=== PATIENT | female | born 2005 | race Caucasian/White ===

== ENCOUNTER 2024-07-18 17:45 | Inpatient (IN) | payer OTHER ==
--- NOTE | 2024-07-18 18:07 | ED ---
General Adult HPI - General Chief complaint: Seizure Stated complaint: seizure Time Seen by Provider: 07/18/24 17:54 Source: patient, EMS Mode of arrival: EMS Limitations: altered mental status - History of Present Illness Initial comments: Dictation was produced using [employer] dictation software. please excuse any grammatical, word or spelling errors. Chief Complaint: 19-year-old female with seizure History of Present Illness: Patient 19-year-old female she has a history of seizure disorder. Patient states she has total abdominal pain. She also c omplains of a mild headache. Mother at the bedside states that patient has had seizures in the past that she says was related to low sodium. Patient has been having bouts of vomiting. She was seen in the ER recently for similar issue. She has not followed up with neurology outpatient yet. Had multiple bouts of emesis that is nonbilious and nonbloody. She complains of total abdominal pain The ROS documented in this emergency department record has been reviewed and confirmed by me. Those systems with pertinent positive or negative responses have been documented in the HPI. All other systems are other negative and/or noncontributory. - Related Data Allergies Allergy/AdvReac Type Severity Reaction Status Date / Time No Known Allergies Allergy Verified 07/18/24 18:01 Review of Systems ROS Statement: Those systems with pertinent positive or pertinent negative responses have been documented in the HPI. ROS Other: All systems not noted in ROS Statement are negative. Past Medical History Past Medical History: Seizure Disorder Additional Past Medical History / Comment(s): POTS History of Any Multi-Drug Resistant Organisms: None Reported Past Surgical History: No Surgical Hx Reported Smoking Status: Vaper Past Alcohol Use History: Occasional Past Drug Use History: Marijuana General Exam - General Exam Comments Initial Comments: PHYSICAL EXAM: General Impression: Alert and oriented x3, not in acute distress HEENT: Normocephalic atraumatic, extra-ocular movements intact, pupils equal and reactive to light bilaterally, mucous membranes moist. Cardiovascular: Heart regular rate and rhythm Chest: Able to complete full sentences, no retractions, no tachypnea Abdomen: abdomen soft, non-tender, non-distended, no organomegaly Musculoskeletal: Pulses present and equal in all extremities, no peripheral edema Motor: no focal deficits noted Neurological: CN II-XII grossly intact, no focal motor or sensory deficits noted Skin: Intact with no visualized rashes Psych: Normal affect and mood Limitations: altered mental status Course Vital Signs 07/18/24 07/18/24 07/18/24 17:50 18:10 19:50 Temperature 98.7 F 98.7 F Pulse Rate 90 85 78 Respiratory 18 17 16 Rate Blood Pressure 105/62 110/55 117/80 O2 Sat by Pulse 98 98 98 Oximetry EKG Findings - EKG Comments: EKG Findings:: My EKG interpretation: Ventricular rate 84, sinus rhythm,. 137, QRS 106, QTc 441. No [place] prolongation, no QTC prolongation, no ST or T-wave changes notedOverall, this EKG is unremarkable Medical Decision Making - Medical Decision Making Was pt. sent in by a medical professional or institution (, PA, CUTTING TABLE OPERATOR, urgent care, hospital, or retirement...) When possible be specific @ -No Did you speak to anyone other than the patient for history (EMS, parent, family, police, friend...)? What history was obtained from this source @ -No Did you review nursing and triage notes (agree or disagree)? Why? @ -I reviewed and agree with nursing and triage notes Were old charts reviewed (outside hosp., previous admission, EMS record, old EKG, old radiological studies, urgent care reports/EKG's, retirement records)? Report findings @ -No old charts were reviewed Differential Diagnosis (chest pain, altered mental status, abdominal pain women, abdominal pain men, vaginal bleeding, musculoskeletal, weakness, fever, dyspnea, syncope, headache, dizziness, GI bleed, back pain, seizure, CVA, palpatations, mental health)? @ -Differential Seizure: Recurrent seizure disorder, febrile seizure, alcohol withdrawal, stimulants, meningitis, encephalitis, intercranial hemorrhage, intracranial tumor, stroke, eclampsia, thyrotoxicosis, hypocalcemia, hyponatremia, hypernatremia, hypomagnesemia, psychogenic, this is not meant to be an all-inclusive list. EKG interpreted by me (3pts min.). @ -See above X-rays interpreted by me (1pt min.). @ -Pending CT interpreted by me (1pt min.). @ -Pending U/S interpreted by me (1pt. min.). @ -None done What testing was considered but not performed or refused? (CT, X-rays, U/S, labs)? Why? @ -None What meds were considered but not given or refused? Why? @ -None Was smoking cessation discussed for >3mins.? @ -No Were there social determinants of health that impacted care today? How? (Homelessness, low income, unemployed, alcoholism, drug addiction, transportation, low edu. Level, literacy, decrease access to med. care, correction, rehab)? @ -No Was there de-escalation of care discussed even if they declined (Discuss DNR or withdrawal of care, Hospice)? DNR status @ -No What co-morbidities impacted this encounter? (DM, HTN, Smoking, COPD, CAD, Cancer, CVA, ARF, Chemo, Hep., AIDS, mental health diagnosis, sleep apnea, morbid obesity)? @ -None Was patient admitted / discharged? Hospital course, mention meds given and route, prescriptions, significant lab abnormalities, going to OR and other pertinent info. @ -19-year-old female presents to the emergency department after having had a tonic-clonic seizure. Seizure was witnessed by parents. Vital signs upon arrival are within acceptable limits. She did complain of some associated abdo ludwin pain. Her abdomen soft. Laboratory evaluation obtained. Labs shows Acidosis with a lactic acid of 8.[address] brain and abdominal x-ray obtained. CT brain pending. Abdominal x-ray is nonacute. Patient has been having significant difficulty following up with outpatient neurology. She reportedly has an appointment however they are still 2 months out. She has been having increased frequency of her seizures. Patient be admitted with consultation to neurology. Case discussed with hospitalist for admission. Did you discuss the management of the patient with other professionals (professionals i.e. , PA, CUTTING TABLE OPERATOR, lab, RT, psych nurse, social services specialist, starch and prosize mixer, teacher, space officer, rehabilitation case coordinator)? Give summary @ -No Was critical care preformed (if so, how long)? @ -No Undiagnosed new problem with uncertain prognosis? @ -No Drug Therapy requiring intensive monitoring for toxicity (Heparin, Nitro, Insulin, Cardizem)? @ -No Were any procedures done? @ -No Diagnosis/symptom? Acute, or Chronic, or Acute on Chronic? Uncomplicated (without systemic symptoms) or Complicated (systemic symptoms)? @ -Seizure Side effects of treatment? @ -No Exacerbation, Progression, or Severe Exacerbation? @ -No Poses a threat to life or bodily function? How? (Chest pain, [place], ME, pneumonia, PE, COPD, DKA, ARF, appy, cholecystitis, CVA, Diverticulitis, Homicidal, Suicidal, threat to staff... and all critical care pts) @ -yes - Lab Data Result diagrams: 07/18/24 18:25 07/18/24 18:25 Lab Results 07/18/24 07/18/24 07/18/24 Range/Units 18:25 18:25 18:25 WBC 13.3 H (3.8-10.6) k/uL RBC 4.60 (3.80-5.40) m/uL Hgb 14.0 (11.4-16.0) gm/dL Hct 42.5 (34.0-46.0) % MCV 92.5 (80.0-100.0) fL MCH 30.5 (25.0-35.0) pg MCHC 33.0 (31.0-37.0) g/dL RDW 12.6 (11.5-15.5) % Plt Count 208 (150-450) k/uL MPV 8.1 Neutrophils % 92 % Lymphocytes % 5 % Monocytes % 3 % Eosinophils % 0 % Basophils % 0 % Neutrophils # 12.2 H (1.3-7.7) k/uL Lymphocytes # 0.6 L (1.0-4.8) k/uL Monocytes # 0.4 (0-1.0) k/uL Eosinophils # 0.0 (0-0.7) k/uL Basophils # 0.0 (0-0.2) k/uL PT 12.9 H (10.0-12.5) sec INR 1.2 H (<1.2) APTT 21.9 L (22.0-30.0) sec Sodium 134 L (137-145) mmol/L Potassium 3.8 (3.5-5.1) mmol/L Chloride 105 (98-107) mmol/L Carbon Dioxide 15 L (22-30) mmol/L Anion Gap 14 mmol/L BUN 8 (7-17) mg/dL Creatinine 0.55 (0.52-1.04) mg/dL Est GFR (CKD-EPI)AfAm >90 (>60 ml/min/1.73 sqM) Est GFR (CKD-EPI)NonAf >90 (>60 ml/min/1.73 sqM) Glucose 154 H (74-99) mg/dL Plasma Lactic Acid Narinder (0.7-2.0) mmol/L Calcium 8.8 (8.4-10.2) mg/dL Magnesium 2.4 H (1.6-2.3) mg/dL Total Bilirubin 2.2 H (0.2-1.3) mg/dL AST 24 (14-36) U/L ALT 23 (4-34) U/L Alkaline Phosphatase 50 (38-126) U/L Total Protein 7.3 (6.3-8.2) g/dL Albumin 4.8 (3.5-5.0) g/dL HCG, Quant <2.4 mIU/mL 07/18/24 Range/Units 18:25 WBC (3.8-10.6) k/uL RBC (3.80-5.40) m/uL Hgb (11.4-16.0) gm/dL Hct (34.0-46.0) % MCV (80.0-100.0) fL MCH (25.0-35.0) pg MCHC (31.0-37.0) g/dL RDW (11.5-15.5) % Plt Count (150-450) k/uL MPV Neutrophils % % Lymphocytes % % Monocytes % % Eosinophils % % Basophils % % Neutrophils # (1.3-7.7) k/uL Lymphocytes # (1.0-4.8) k/uL Monocytes # (0-1.0) k/uL Eosinophils # (0-0.7) k/uL Basophils # (0-0.2) k/uL PT (10.0-12.5) sec INR (<1.2) APTT (22.0-30.0) sec Sodium (137-145) mmol/L Potassium (3.5-5.1) mmol/L Chloride (98-107) mmol/L Carbon Dioxide (22-30) mmol/L Anion Gap mmol/L BUN (7-17) mg/dL Creatinine (0.52-1.04) mg/dL Est GFR (CKD-EPI)AfAm (>60 ml/min/1.73 sqM) Est GFR (CKD-EPI)NonAf (>60 ml/min/1.73 sqM) Glucose (74-99) mg/dL Plasma Lactic Acid Narinder 8.0 H* (0.7-2.0) mmol/L Calcium (8.4-10.2) mg/dL Magnesium (1.6-2.3) mg/dL Total Bilirubin (0.2-1.3) mg/dL AST (14-36) U/L ALT (4-34) U/L Alkaline Phosphatase (38-126) U/L Total Protein (6.3-8.2) g/dL Albumin (3.5-5.0) g/dL HCG, Quant mIU/mL Disposition Clinical Impression: Seizure Disposition: ADMITTED IP TO THIS HOSP Condition: Fair Referrals: None,Stated [Primary Care Provider] - 1-2 days Decision Time: 20:42
[2024-07-18 18:44] LABS: Basophils % (A) 0 %; Eosinophils % (A) 0 %; HCT 42.5 % (34.0-46.0); Lymphocytes # (A) 0.6 k/uL (1.0-4.8); Lymphocytes % (A) 5 %; MCH 30.5 pg (25.0-35.0); MCV 92.5 fL (80.0-100.0); Mean Platelet Volume 8.1; Monocytes # (A) 0.4 k/uL (0-1.0); Monocytes % (A) 3 %; Neutrophils # (A) 12.2 k/uL (1.3-7.7); Neutrophils % (A) 92 %; Platelet Count 208 k/uL (150-450); RDW 12.6 % (11.5-15.5); WBC 13.3 k/uL (3.8-10.6)
[2024-07-18 19:00] LABS: AST 24 U/L (14-36); African American GFR (CKD) >90 (>60 ml/min/1.73 sqM); Albumin 4.8 g/dL (3.5-5.0); Alkaline Phosphatase 50 U/L (38-126); Anion Gap 14 mmol/L; Blood Urea Nitrogen 8 mg/dL (7-17); Calcium 8.8 mg/dL (8.4-10.2); Carbon Dioxide 15 mmol/L (22-30); Chloride 105 mmol/L (98-107); Glucose 154 mg/dL (74-99); INR 1.2 (<1.2); Magnesium 2.4 mg/dL (1.6-2.3); Non-African American GFR(CKD) >90 (>60 ml/min/1.73 sqM); Partial Thromboplastin Time 21.9 sec (22.0-30.0); Potassium 3.8 mmol/L (3.5-5.1); Prothrombin Time 12.9 sec (10.0-12.5); Sodium 134 mmol/L (137-145); Total Bilirubin 2.2 mg/dL (0.2-1.3); Total Protein 7.3 g/dL (6.3-8.2)
[2024-07-18 19:07] LABS: ALT 23 U/L (4-34)
[2024-07-18 19:14] LABS: HCG,Quantitative Serum <2.4 mIU/mL
[2024-07-18] MEDS: levETIRAcetam IV 500 MG/5 ML VIAL IVP STA (19:52)
--- NOTE | 2024-07-18 20:24 | XR ---
EXAMINATION TYPE: XR abdomen 1V DATE OF EXAM: 07/18/2024 8:16 PM COMPARISON: None CLINICAL INDICATION: Female, 19 years old with history of pain, head contusion; [facility] TECHNIQUE: One radiographic view of the abdomen was obtained. FINDINGS: The bowel gas pattern is nonspecific without dilated loops of small or large bowel. . Fecal material and gas are demonstrated throughout the colon and rectum. There is no evidence for organomegaly or pneumoperitoneum. The osseous structures are intact. No ab normal calcifications are present. IMPRESSION: Nonspecific bowel gas pattern without radiographic evidence for acute process. [facility], , 07/18/2024 8:21 PM
[2024-07-18] MEDS ORDERED: NALOXONE 0.4 MG/ML 1 ML VIAL IV PRN (20:37)
--- NOTE | 2024-07-18 21:25 | CT ---
EXAMINATION TYPE: CT brain cspine wo con DATE OF EXAM: 07/18/2024 8:45 PM COMPARISON: None. CLINICAL INDICATION: Female, 19 years old with history of pain, head contusion; Pain. Head contusion. Possible seizure. TECHNIQUE: Brain: Multiple axial CT images of the brain were obtained without IV contrast. Cspine: Axial CT images from the skull base to the inferior aspect of T2 we obtained without intraven ous contrast. Coronal and sagittal reformatted images were also reviewed. . CT DLP: 1188.1 mGycm, Automated exposure control for dose reduction was used. FINDINGS: Brain: Extra-axial spaces: No abnormal extra-axial fluid collections. Ventricular system: Within normal limits Cerebral parenchyma: No acute intraparenchymal hemorrhage or mass effect. The magallon-white junction is well differentiated. Cerebellum: Unremarkable. Mass effect: No evidence of midline shift. Intracranial vasculature: unremarkable Soft tissues: Normal. Calvarium/osseous structures: No depressed skull fracture. Paranasal sinuses and mastoid air cells: Clear. Visualized orbits: Orbital contents are intact. Cervical spine: Fracture: None. Osseous structures: Unremarkable Vertebral alignment: Within normal limits. Spinal canal/Neural Foramina: No evidence of significant spinal canal narrowing. No evidence for sign ificant neural foraminal stenosis. Neck soft tissues: Prevertebral soft tissues are within normal limits. Other: The airway is patent. The lung apices are clear. IMPRESSION: 1. No acute intracranial process. 2. No evidence of cervical spine fracture. [facility], , 07/18/2024 9:23 PM
[2024-07-18] MEDS: SODIUM CHLORIDE 0.9% 1,000 ML IV SCH (21:29)
--- NOTE | 2024-07-18 23:05 | P.HPIM ---
History of Present Illness H&P Date: 07/18/24 History of present illness; 19-year-old female with a PMH of seizures presents after having a witnessed seizure by her parents. The history is supplemented by the patient's father at the bedside who witnessed the seizure episode. Father states earlier today his daughter told him she was not feeling well, and he immediately thought this could be similar to her seizure-like symptoms in the past so he decided to drive her to the ED. Reports and route she began having violent convulsions, had foam coming from her mouth and her jaw was very taut. Reports he stopped the car and EMS was called. Reports seizure-like activity lasted approximately 10 minutes, did not notice any loss of urine or bowel. Father reports this is the patient's third seizure in the last 4 months. Reports the first 2 seizures were unwitnessed, but both times the patient was hospitalized for further workup although was not started on anti-epilectics. Father reports the patient was scheduled for outpatient neurology August 27 as they were not able to get an earlier appointment. Reports after first seizure, doctors at the hospital told them it was due to low sodium. Father asked the p atient before the events today if she had fallen, as she had a bump on her head and she stated that she could not remember how she had gotten that. Patient also reports she has had mild abdominal pain as well as nausea. Denies being on antiseizure medication at home. Denied any additional complaints at the time of interview. Surgical history: None Social history: Vapes, occasional alcohol use, and marijuana use. Family history: No history of seizure disorder in mom or dad's family, paternal history of diabetes. Labs: WBC 13.3, hemoglobin 14, MCV 90.5, neutrophils 0.2, sodium 134, potassium 3.8, creatinine 0.55, glucose 154, plasma lactic acid venous 8, magnesium 2.4, T. bili 2.2, and hCG less than 2.4. Imaging: -Abdominal x-ray shows nonspecific bowel gas pattern without radiographic evidence for acute process -Head/cervical spine CT shows no acute intracranial process, no evidence of cervical spine fracture. -EK bpm, sinus rhythm, QTc 441 ms Patient admitted to internal medicine service REVIEW OF SYSTEMS: As stated above in the HPI. The rest of the 14-point review of systems is negative. PHYSICAL EXAMINATION: GENERAL: The patient is alert and oriented x3, not in any acute distress. Well developed, well nourished. HEENT: Pupils are round and equally reacting to light. EOMI. No scleral icterus. No conjunctival pallor. Normocephalic, atraumatic. CARDIOVASCULAR: S1 and S2 present. No murmurs, rubs, or gallops. PULMONARY: Chest is clear to auscultation b/l, no wheezing or crackles. ABDOMEN: Soft, nontender, nondistended, normoactive bowel sounds. No palpable organomegaly. MUSCULOSKELETAL: No joint swelling or deformity. EXTREMITIES: No cyanosis, clubbing, or pedal edema. NEUROLOGICAL: Gross neurological examination did not reveal any focal deficits. SKIN: No rashes. Round 4 to 6 mm brusing with swelling left forehead Assessment: 19-year-old female with a PMH of seizures presents after having a witnessed seizure by her parents. Plan: #Witnessed tonic-clonic seizure w/ multiple similar episodes over past few months #Elevated lactate #Potential unwitnessed fall -Elevated lactate likely secondary to muscle hypoxia during convulsions -S/p Keppra 1000 mg IVP once in ED, continue Keppra 1000 mg PO every 12 hours -Fall/Seizure precautions -Neurology consulted -CT brain shows no acute intracranial process -Order EEG -Third unprovoked seizure in this patient likely indicates epilepsy #Leukocytosis, likely secondary to acute stressor with no signs of active infection at this time #Hyponatremia, mild, suspect due to SiADH in setting of seizures #Elevated T. Bilirubin -Monitor CMP for now -Obtain RUQ US Chronic conditions: None F: NS 75 cc/h E: None N: Regular diet A: Normally ambulates unassisted at home DVT ppx: Pneumatic compression sleeves GI ppx: None indicated Dispo: Pending clinical course, likely can be discharged after 24 hours without seizures, wnl EEG, and neurology clearance. Jean Perez MD PGY-1 FM Dictation was produced using [employer] dictation software. please excuse any grammatical, word or spelling errors. Past Medical History Past Medical History: Seizure Disorder Additional Past Medical History / Comment(s): POTS History of Any Multi-Drug Resistant Organisms: None Reported Past Surgical History: No Surgical Hx Reported Smoking Status: Vaper Past Alcohol Use History: Occasional Past Drug Use History: Marijuana - Past Family History Father Family Medical History: Diabetes Mellitus (Paternal Grandmother had diabetes) Medications and Allergies Home Medications Medication Instructions Recorded Confirmed Type Cholecalciferol (Vitamin D3) 1,250 mcg PO WE 07/18/24 07/18/24 History [Vitamin D3 (1250 Mcg = 50,000 Iu)] Allergies Allergy/AdvReac Type Severity Reaction Status Date / Time No Known Allergies Allergy Verified 07/18/24 21:13 Physical Exam Vitals: Vital Signs Temp Pulse Resp BP Pulse Ox 07/18/24 19:50 78 16 117/80 98 07/18/24 18:10 98.7 F 85 17 110/55 98 07/18/24 17:50 98.7 F 90 18 105/62 98 Intake and Output 07/18/24 07/18/24 07/18/24 06:59 14:59 22:59 Other: Weight 47.627 kg Results CBC & Chem 7: 07/18/24 18:25 07/18/24 18:25 Labs: Abnormal Lab Results - Last 24 Hours (Table) 07/18/24 07/18/24 07/18/24 Range/Units 18:25 18:25 18:25 WBC 13.3 H (3.8-10.6) k/uL Neutrophils # 12.2 H (1.3-7.7) k/uL Lymphocytes # 0.6 L (1.0-4.8) k/uL PT 12.9 H (10.0-12.5) sec INR 1.2 H (<1.2) APTT 21.9 L (22.0-30.0) sec Sodium 134 L (137-145) mmol/L Carbon Dioxide 15 L (22-30) mmol/L Glucose 154 H (74-99) mg/dL Plasma Lactic Acid Narinder (0.7-2.0) mmol/L Magnesium 2.4 H (1.6-2.3) mg/dL Total Bilirubin 2.2 H (0.2-1.3) mg/dL 07/18/24 Range/Units 18:25 WBC (3.8-10.6) k/uL Neutrophils # (1.3-7.7) k/uL Lymphocytes # (1.0-4.8) k/uL PT (10.0-12.5) sec INR (<1.2) APTT (22.0-30.0) sec Sodium (137-145) mmol/L Carbon Dioxide (22-30) mmol/L Glucose (74-99) mg/dL Plasma Lactic Acid Narinder 8.0 H* (0.7-2.0) mmol/L Magnesium (1.6-2.3) mg/dL Total Bilirubin (0.2-1.3) mg/dL
[2024-07-18] MEDS: ONDANSETRON 4 MG/2 ML VIAL IVP PRN (23:43)
[2024-07-19 05:52] LABS: HCT 41.6 % (34.0-46.0); HGB 13.7 gm/dL (11.4-16.0); MCH 30.2 pg (25.0-35.0); MCHC 32.9 g/dL (31.0-37.0); MCV 91.8 fL (80.0-100.0); Mean Platelet Volume 7.8; Platelet Count 185 k/uL (150-450); RBC 4.53 m/uL (3.80-5.40); RDW 12.8 % (11.5-15.5); WBC 14.7 k/uL (3.8-10.6)
[2024-07-19 06:02] LABS: African American GFR (CKD) >90 (>60 ml/min/1.73 sqM); Anion Gap 15 mmol/L; Blood Urea Nitrogen 10 mg/dL (7-17); Calcium 9.3 mg/dL (8.4-10.2); Carbon Dioxide 18 mmol/L (22-30); Chloride 104 mmol/L (98-107); Glucose 89 mg/dL (74-99); Non-African American GFR(CKD) >90 (>60 ml/min/1.73 sqM); Potassium 3.9 mmol/L (3.5-5.1); Sodium 137 mmol/L (137-145)
[2024-07-19] MEDS: levETIRAcetam 500 MG TAB PO SCH ×2 (09:42→21:42)
--- NOTE | 2024-07-19 11:10 | US ---
EXAMINATION TYPE: US gallbladder DATE OF EXAM: 07/19/2024 COMPARISON: NONE CLINICAL INDICATION: Female, 19 years old with history of Elevated T. bili; bilirubin was 2.2, patien t slept throughout procedure, could not wake her for questioning TECHNIQUE: Grayscale and color Doppler imaging of the right upper quadrant was performed. FINDINGS: EXAM MEASUREMENTS: Liver Length: 13.3 cm Gallbladder Wall: 0.2 cm CBD: 0.4 cm Right Kidney: limited views NET DEVELOPER NOTES:patients lack of cooperation and bowel gas limits exam Pancreas: wnl Liver: wnl Gallbladder: wnl Evidence for sonographic Pascual's sign: no CBD: wnl Right Kidney: unable to fully assess due to bowel gas and lack of patient cooperation IMPRESSION: No significant abnormality seen in the gallbladder, pancreas, or liver. Right kidney not evaluated du e to bowel gas [facility], , 07/19/2024 11:08 AM
--- NOTE | 2024-07-19 12:20 | P.PN ---
Subjective Progress Note Date: 07/19/24 Subjective: Patient seen and examined at the bedside. No acute events overnight. Patient hemodynamically stable and not complaining of headaches, dizziness, fever, chills, nausea, vomiting, shortness of breath, chest pain, abdominal discomfort, weakness, numbness and tingling in upper or lower extremities. Pertinent negative and positive ROS as above. Objective: Vital signs reviewed. General: non toxic, no distress, appears at stated age, normal weight Derm: no unusual rashes/lesions, warm Head: atraumatic, normocephalic, symmetric, Round 4 to 6 mm brusing with swelling left forehead Eyes: EOMI, no lid lag, anicteric sclera, pupils equal round reactive to light ENT: Nose and ears atraumatic Neck: No cervical lymphadenopathy, trachea midline, supple Mouth: no lip lesion, mucus membranes moist Cardiovascular: S1S2 reg, no murmur, positive dorsalis pedis pulse bilateral, no edema Lungs: CTA bilateral, no rhonchi, no rales, no accessory muscle use Abdominal: soft, nontender to palpation, no guarding Ext: muscle strength 5 out of 5 in all 4 extremities grossly, no gross muscle atrophy, no contractures, Neuro: CN II-XI grossly intact, no gross focal neuro deficits Psych: Alert, oriented, appropriate affect Data reviewed today: Pertinent Labs: WBC 14.7, hemoglobin 13.7, platelet 185, sodium 137, potassium 3.9, bicarb 18, chloride 104, creatinine 0.84, glucose 89, calcium 9.3, lactic acid 1.3 Images: Gallbladder ultrasound is unremarkable Assessment and Plan: 19-year-old female with a PMH of seizures presents after having a witnessed seizure by her parents. #Suspected epilepsy #History of suspected unwitnessed unprovoked seizures in the past 6 months #Elevated lactate #Anion gap metabolic acidosis secondary to above #Potential unwitnessed fall Lactate improved to 1.3 Discussed management with neurology, Keppra changed to 500 every 12 hours, MRI brain with and without Fall/Seizure precautions CT brain shows no acute intracranial process Order EEG #Leukocytosis, likely secondary to acute stressor with no signs of active infection at this time #Hyponatremia, mild, suspect due to SiADH in setting of seizures #Elevated T. Bilirubin Gallbladder ultrasound is unremarkable Continue monitor BMP and CBC Chronic conditions: None F: IV normal saline 75 cc/h E: Replete as needed N: Regular diet A: Ambulatory without assist DVT ppx: Not indicated, low risk for DVT Code Status: Full code Anticipated discharge place: Pending clinical course Anticipated discharge date: Pending clinical course I have seen and evaluated the patient today. Discussed with the resident and agree with the residents finding and plan as documented in the resident's note. Changes highlighted in blue font. Objective - Vital Signs Vital signs: Vital Signs Temp 98.6 F 07/19/24 09:23 Pulse 86 07/19/24 09:23 Resp 18 07/19/24 09:23 BP 105/72 07/19/24 09:23 Pulse Ox 100 07/19/24 09:23 FiO2 Intake & Output 07/18/24 07/19/24 07/19/24 18:59 06:59 18:59 Weight 47.627 kg - Labs CBC & Chem 7: 07/19/24 05:33 07/19/24 05:33 Labs: Abnormal Lab Results - Last 24 Hours (Table) 07/18/24 07/18/24 07/18/24 Range/Units 18:25 18:25 18:25 WBC 13.3 H (3.8-10.6) k/uL Neutrophils # 12.2 H (1.3-7.7) k/uL Lymphocytes # 0.6 L (1.0-4.8) k/uL PT 12.9 H (10.0-12.5) sec INR 1.2 H (<1.2) APTT 21.9 L (22.0-30.0) sec Sodium 134 L (137-145) mmol/L Carbon Dioxide 15 L (22-30) mmol/L Glucose 154 H (74-99) mg/dL Plasma Lactic Acid Narinder (0.7-2.0) mmol/L Magnesium 2.4 H (1.6-2.3) mg/dL Total Bilirubin 2.2 H (0.2-1.3) mg/dL 07/18/24 07/19/24 07/19/24 Range/Units 18:25 05:33 05:33 WBC 14.7 H (3.8-10.6) k/uL Neutrophils # (1.3-7.7) k/uL Lymphocytes # (1.0-4.8) k/uL PT (10.0-12.5) sec INR (<1.2) APTT (22.0-30.0) sec Sodium (137-145) mmol/L Carbon Dioxide 18 L (22-30) mmol/L Glucose (74-99) mg/dL Plasma Lactic Acid Narinder 8.0 H* (0.7-2.0) mmol/L Magnesium (1.6-2.3) mg/dL Total Bilirubin (0.2-1.3) mg/dL
--- NOTE | 2024-07-19 13:50 | P.CNNES ---
History of Present Illness Consult date: 07/19/24 Requesting physician: Aldair Ni Reason for Consult: seizure History of Present Illness: This is a 19-year-old woman who presents to our emergency department on 07/18/2024 because of seizure-like activity. Some of the history is obtained from the parents. To the mother yesterday the patient face was red and she s tated that she was not feeling well and the patient had bruises over the face and the patient could not tell her mother where the bruises came from. Excepted to come to the hospital to be evaluated. Parents were driving to the hospital and that the patient was a passenger and the patient started having shaking of all extremities with eyes rolling and closure and the episode lasted more than 3 minutes but did not have any tongue bite urinary cons or bowel incontinence. According to the patient prior to the episode that she felt she had dj vu as well as a panic attack. According to the parents this is the third episode that she had of seizure-like activity. Her first episode was about 4 5 months ago in which she fell to the ground and she was taken to outside hospital over at [facility] and she was notified that her seizure-like episode was due to her sodium electrolyte imbalance but not have EEG or MRI of the brain. Then she had another episode a month and a half later and it seems that she had foaming around the mouth and also was taken to the same outside hospital again she was told that this was related due to her electrolyte abnormality the sodium. Parents are not aware of what her sodium how low was. Patient does not have seizures in the past. Family history of seizure. Patient socially drinks alcohol here and there but not significant. No illicit drug use. Otherwise she is healthy. According her history is normal. Patient has a coming up appointment with the outpatient neurologist for the first time and according to the parents so hard to get an appointment. Do not recall the name of her outpatient neurologist. Some of the workup during this hospital visit consisted of: Patient is afebrile Initial white blood cell is 13.3 thousand repeat is 14.7K. Sodium is 134, glucose is 154 serum, calcium is 8.8, magnesium 2.4, AST ALT is within normal limits. Lactic acid vein is 8.0 and repeat is 1.3. BUN/creatinine is within normal limits CT of the head and cervical spine is reported as no acute intracranial process. No evidence of cervical spine fracture. Reviewed the CT of the head and cervical spine I feel there is no acute process. Review of Systems As per HPI. Past Medical History Past Medical History: Seizure Disorder Additional Past Medical History / Comment(s): POTS History of Any Multi-Drug Resistant Organisms: None Reported Past Surgical History: No Surgical Hx Reported Smoking Status: Vaper Past Alcohol Use History: Occasional Past Drug Use History: Marijuana - Past Family History Father Family Medical History: Diabetes Mellitus (Paternal Grandmother had diabetes) Medications and Allergies Home Medications Medication Instructions Recorded Confirmed Type Cholecalciferol (Vitamin D3) 1,250 mcg PO WE 07/18/24 07/18/24 History [Vitamin D3 (1250 Mcg = 50,000 Iu)] Allergies Allergy/AdvReac Type Severity Reaction Status Date / Time No Known Allergies Allergy Verified 07/18/24 21:13 Physical Examination - Vital Signs Vital Signs: Vital Signs Temp Pulse Resp BP Pulse Ox 07/19/24 09:23 98.6 F 86 18 105/72 100 07/19/24 05:23 75 18 119/74 100 07/19/24 02:11 78 16 119/71 100 07/18/24 19:50 78 16 117/80 98 07/18/24 18:10 98.7 F 85 17 110/55 98 07/18/24 17:50 98.7 F 90 18 105/62 98 Intake and Output 07/18/24 07/19/24 07/19/24 22:59 06:59 14:59 Other: Weight 47.627 kg GENERAL: The patient is lying in bed and is not in acute distress. NEUROLOGICAL: Higher mental function: The patient is awake, alert, oriented to self, place and time. Patient is following commands. No aphasia and no neglect. Cranial nerves: The pupils are round, equal and reactive to light and accommoda tion. Visual aragon are full to confrontation throughout. Extraocular movement is intact no nystagmus is noted. Facial sensation is normal to touch throughout. The facial strength is normal throughout. Hearing is normal bilaterally to hand rub. Tongue is midline and moved [id number] without any difficulty. No dysarthria is noted. Shoulder shrug is normal bilaterally. Motor: The strength is 5 over 5 throughout. Normal tone and bulk. Cerebellum: Normal finger to nose bilaterally. Sensation: Sensation is normal to touch throughout. Reflexes (right/left): 2+ throughout. Plantars are downgoing bilaterally. Results - Laboratory Findings CBC and BMP: 07/19/24 05:33 07/19/24 05:33 Abnormal Lab Findings: Abnormal Labs 07/18/24 07/18/24 07/18/24 18:25 18:25 18:25 WBC 13.3 H Neutrophils # 12.2 H Lymphocytes # 0.6 L PT 12.9 H INR 1.2 H APTT 21.9 L Sodium 134 L Carbon Dioxide 15 L Glucose 154 H Plasma Lactic Acid Narinder Magnesium 2.4 H Total Bilirubin 2.2 H 07/18/24 07/19/24 07/19/24 18:25 05:33 05:33 WBC 14.7 H Neutrophils # Lymphocytes # PT INR APTT Sodium Carbon Dioxide 18 L Glucose Plasma Lactic Acid Narinder 8.0 H* Magnesium Total Bilirubin Assessment and Plan Assessment: This is a 19-year-old young woman who presented emergency department on 07/18/2024 because of seizure-like activity and the parent stated that she was having jerking of all extremity, eyes rolling back and episode lasted more more than 3 minutes. She had 2 prior seizure-like activity and her first episode started about 4-5 months ago and in past at outside facility was told due to electrolyte abnormality (low sodium). New onset seizure and this seems more epileptic. She does not have electrolyte abnormality. Leukocytosis and elevated lactic acid and this is more reactive due to above Plan: The ED has started her on Keppra 1000 mg once. Will start the patient on Keppra 500 mg twice a day. I ordered MRI of the brain with and without seizure protocol Routine EEG is ordered and is pending Seizure precautions seizure pads Notified the patient and her family per the [place] DMV because a seizure, to avoid driving for 6 months until seizure-free, avoid heights, avoid swimming assisted or heavy machinery Will defer the rest of the medical management to primary and other specialist. Recommend patient to continue with her appointment with her neurologist as outpatient and has appointment this month. The plan discussed with the patient, her parents who are bedside as well as primary team Thank you for the consultation. Time with Patient: Greater than 30
[2024-07-20] MEDS: ONDANSETRON 4 MG/2 ML VIAL IVP PRN (09:38)
[2024-07-20 10:18] LABS: Magnesium 2.1 mg/dL (1.5-2.4)
[2024-07-20 10:20] LABS: Basophils # (A) 0.02 X 10*3/uL (0.00-0.10); Basophils % (A) 0.2 %; Eosinophils # (A) 0.06 X 10*3/uL (0.04-0.35); Eosinophils % (A) 0.6 %; HCT 36.4 % (37.2-46.3); HGB 12.3 g/dL (12.0-15.0); Lymphocytes # (A) 1.99 X 10*3/uL (0.90-5.00); Lymphocytes % (A) 21.1 %; MCHC 33.8 g/dL (32.0-37.0); MCV 88.8 FL (80.0-97.0); Mean Platelet Volume 10.7 FL (9.5-12.2); Monocytes # (A) 0.89 X 10*3/uL (0.20-1.00); Monocytes % (A) 9.4 %; NRBC Per 100 WBC 0 X 10*3/uL (0.00-0.01); Neutrophils # (A) 6.42 X 10*3/uL (1.80-7.70); Neutrophils % (A) 68.2 %; Platelet Count 162 X 10*3/uL (140-440); WBC 9.43 X 10*3/uL (4.50-10.00)
[2024-07-20 10:30] LABS: BUN/Creat Ratio 8.12 Ratio (12.00-20.00); Blood Urea Nitrogen 6.5 mg/dL (9.0-27.0); Calcium 8.8 mg/dL (8.7-10.3); Carbon Dioxide 23.2 mmol/L (21.6-31.8); Chloride 104 mmol/L (96-109); Glucose 75 mg/dL (70-110); Potassium 3.6 mmol/L (3.5-5.5); Sodium 138 mmol/L (135-145)
--- NOTE | 2024-07-20 14:30 | P.PN ---
Subjective Progress Note Date: 07/20/24 I am following up with the patient and she states she is doing well. Patient is more understanding today compared to yesterday. No further seizure like activity. She is not irritable or enriquez and so far no side effects with the medication Objective - Vital Signs Vital signs: Vital Signs Temp 98.5 F 07/20/24 13:35 Pulse 71 07/20/24 13:35 Resp 17 07/20/24 13:35 BP 110/65 07/20/24 13:35 Pulse Ox 95 07/20/24 13:35 FiO2 Intake & Output 07/19/24 07/20/24 07/20/24 18:59 06:59 18:59 Weight 47.627 kg Other: Voiding Method Toilet - Exam GENERAL: The patient is lying in bed and is not in acute distress. NEUROLOGICAL: Higher mental function: The patient is awake, alert, oriented to self, place and time. Patient is following commands. No aphasia and no neglect. Cranial nerves: The pupils are round, equal and reactive to light and accommodation. Visual aragon are full to confrontation throughout. Extraocular movement is intact no nystagmus is noted. Facial sensation is normal to touch throughout. The facial strength is normal throughout. Hearing is normal bilaterally to hand rub. Tongue is midline and moved [id number] without any difficulty. No dysarthria is noted. Shoulder shrug is normal bilaterally. Motor: The strength is 5 over 5 throughout. Normal tone and bulk. Cerebellum: Normal finger to nose bilaterally. Sensation: Sensation is normal to touch throughout. Reflexes (right/left): 2+ throughout. Plantars are downgoing bilaterally. Some of the workup during this hospital visit consisted of: Patient is afebrile Initial white blood cell is 13.3 thousand repeat is 14.7K. HcG quant <2.4 (normal). Sodium is 134, glucose is 154 serum, calcium is 8.8, magnesium 2.4, AST ALT is within normal limits. Lactic acid vein is 8.0 and repeat is 1.3. BUN/creatinine is within normal limits CT of the head and cervical spine is reported as no acute intracranial process. No evidence of cervical spine fracture. Reviewed the CT of the head and cervical spine I feel there is no acute process. - Labs CBC & Chem 7: 07/20/24 06:11 07/20/24 06:11 Labs: Abnormal Lab Results - Last 24 Hours (Table) 07/20/24 07/20/24 Range/Units 06:11 06:11 Hct 36.4 L (37.2-46.3) % Immature Gran # 0.05 H (0.00-0.04) X 10*3/uL BUN 6.5 L (9.0-27.0) mg/dL BUN/Creatinine Ratio 8.12 L (12.00-20.00) Ratio Assessment and Plan Assessment: This is a 19-year-old young woman who presented emergency department on 07/18/2024 because of seizure-like activity and the parent stated that she was having jerking of all extremity, eyes rolling back and episode lasted more more than 3 minutes. She had 2 prior seizure-like activity and her first episode started about 4-5 months ago and in past at outside facility was told due to electrolyte abnormality (low sodium). New onset seizure and this seems more epileptic. This current event does not seems provoked from electrolyte disturbance. Leukocytosis and elevated lactic acid and this is more reactive due to above Plan: Continue Keppra 500 mg twice a day started during this admission. So far she is on the medication and no side effects of mood or irritability. Pending MRI of the brain seizure protocol EEG was completed today and the preliminary is negative for any seizure. Notified the patient and her family per the [place] DMV because a seizure, to avoid driving for 6 months until seizure-free, avoid heights, avoid swimming assisted or heavy machinery Will defer the rest of the medical management to primary and other specialist. Recommend patient to continue with her appointment with her neurologist as outpatient and has appointment this month. The plan discussed with the patient, her parents who are bedside as well as primary team Dr. Bernal will resume neurology service tomorrow A.M. Time with Patient: Less than 30
--- NOTE | 2024-07-20 15:15 | P.PN ---
Subjective Progress Note Date: 07/20/24 Subjective: Patient seen and examined at the bedside. No acute events overnight. Pertinent negative and positive ROS as above. Objective: Vital signs reviewed. General: non toxic, no distress, appears at stated age, normal weight Derm: no unusual rashes/lesions, warm Head: atraumatic, normocephalic, symmetric, Round 4 to 6 mm brusing with swelling left forehead Eyes: EOMI, no lid lag, anicteric sclera, pupils equal round reactive to light ENT: Nose and ears atraumatic Neck: No cervical lymphadenopathy, trachea midline, supple Mouth: no lip lesion, mucus membranes moist Cardiovascular: S1S2 reg, no murmur, positive dorsalis pedis pulse bilateral, no edema Lungs: CTA bilateral, no rhonchi, no rales, no accessory muscle use Abdominal: soft, nontender to palpation, no guarding Ext: muscle strength 5 out of 5 in all 4 extremities grossly, no gross muscle atrophy, no contractures, Neuro: CN II-XI grossly intact, no gross focal neuro deficits Psych: Alert, oriented, appropriate affect Data reviewed today: Pertinent Labs: WBC 9.43, creatinine 0.8, magnesium 2.1 Images: No new imaging Assessment and Plan: 19-year-old female with a PMH of seizures presents after having a witnessed seizure by her parents. #Suspected epilepsy #History of suspected unwitnessed unprovoked seizures in the past 6 months #Elevated lactate, resolved #Anion gap metabolic acidosis secondary to above, resolved #Potential unwitnessed fall -Discussed management with neurology, MRI brain with and without contrast pending, continue Keppra 500 twice daily -Following seizure precautions -EEG pending #Leukocytosis, reactive, resolved #Hyponatremia, mild,, resolved #Elevated T. Bilirubin Gallbladder ultrasound is unremarkable Continue monitor BMP and CBC Chronic conditions: None F: P.o. E: Replete as needed N: Regular diet A: Ambulatory without assist DVT ppx: Not indicated, low risk for DVT Code Status: Full code Anticipated discharge place: Pending clinical course Anticipated discharge date: Pending clinical course Objective - Vital Signs Vital signs: Vital Signs Temp 98.5 F 07/20/24 13:35 Pulse 71 07/20/24 13:35 Resp 17 07/20/24 13:35 BP 110/65 07/20/24 13:35 Pulse Ox 95 07/20/24 13:35 FiO2 Intake & Output 07/19/24 07/20/24 07/20/24 18:59 06:59 18:59 Weight 47.627 kg Other: Voiding Method Toilet - Labs CBC & Chem 7: 07/20/24 06:11 07/20/24 06:11 Labs: Abnormal Lab Results - Last 24 Hours (Table) 07/20/24 07/20/24 Range/Units 06:11 06:11 Hct 36.4 L (37.2-46.3) % Immature Gran # 0.05 H (0.00-0.04) X 10*3/uL BUN 6.5 L (9.0-27.0) mg/dL BUN/Creatinine Ratio 8.12 L (12.00-20.00) Ratio
--- NOTE | 2024-07-21 03:27 | EEG ---
ELECTROENCEPHALOGRAM REPORT CLINICAL HISTORY: This is 19-year-old young woman who presented to the emergency department because of seizure-like activity. The video EEG is obtained to evaluate for seizure epileptiform activity. RELEVANT MEDICATIONS: Keppra. EEG TYPE: This is a routine 21-channel EEG with video using the 10/20 electrode placement system. DESCRIPTION: Wakefulness and drowsiness are obtained. During awake state, the posterior-dominant rhythm consists of [id number] voltage of 10 Hz activity that is well modulated, well sustained. There is no physiological stage 2 sleep architecture. There is bilateral temporal slowing, but appears more left temporal than right. INTERICTAL AND ICTAL: There is rare spike with slow waves over the left confucianism, appears over the T3 lead. There is no seizure noted during the study. ACTIVATION PROCEDURE: Photic stimulation did evoke a posterior driving response at multiple flash frequencies. There is no abnormality during the photic stimulation. Hyperventilation is not performed. CLINICAL INTERPRETATION: This is an abnormal routine EEG. There is temporal slowing of bilateral, but appears left more than the right, which is suggestive of cerebral dysfunction in the involved region. There is rare epileptiform discharges over the left confucianism and appears over the T3 lead, which can increase risk for focal seizures as well as status epilepticus. Otherwise, no seizures noted during the study. Clinical correlation is recommended. MMODL / IJN: [id number] /
--- NOTE | 2024-07-21 14:03 | P.PN ---
Subjective Progress Note Date: 07/21/24 Hospital course: 19-year-old female with a recent history of unwitnessed unprovoked seizures not on antiseizure medication presented after having witnessed tonic-clonic seizure. Patient admitted to the hospital for further assessment and treatment with concern for suspected epilepsy. Initial lab work in the ER showed WBC 13.3, hemoglobin 14, MCV 90.5, neutrophil count 0.2, sodium 134, potassium 3.8, c reatinine 0.55, glucose 154, lactic acid 8, magnesium 2.4, total bili 2.2, bHCG < 2.4, abdominal x-ray shows nonspecific bowel gas pattern without radiographic evidence of acute process. Head/cervical spine CT shows no acute radiographic processes, no evidence of cervical spine fracture. EKG unremarkable. Patient on Keppra 500 twice daily with seizure precautions. Neurology consulted. Abnormal EEG suggestive of cerebral dysfunction. Brain MRI pending. Subjective: Patient seen and examined at the bedside. No acute events overnight. Pertinent negative and positive ROS as above. Objective: Vital signs reviewed. General: non toxic, no distress, appears at stated age, normal weight Derm: no unusual rashes/lesions, warm Head: atraumatic, normocephalic, symmetric, Round 4 to 6 mm brusing with swelling left forehead Eyes: EOMI, no lid lag, anicteric sclera, pupils equal round reactive to light ENT: Nose and ears atraumatic Neck: No cervical lymphadenopathy, trachea midline, supple Mouth: no lip lesion, mucus membranes moist Cardiovascular: S1S2 reg, no murmur, positive dorsalis pedis pulse bilateral, no edema Lungs: CTA bilateral, no rhonchi, no rales, no accessory muscle use Abdominal: soft, nontender to palpation, no guarding Ext: muscle strength 5 out of 5 in all 4 extremities grossly, no gross muscle atrophy, no contractures, Neuro: CN II-XI grossly intact, no gross focal neuro deficits Psych: Alert, oriented, appropriate affect Data reviewed today: Pertinent Labs: No new labs Images: Brain MRI in the afternoon Assessment and Plan: 19-year-old female with a PMH of seizures presents after having a witnessed seizure by her parents. #Suspected epilepsy #History of suspected unwitnessed unprovoked seizures in the past 6 months #Elevated lactate, resolved #Anion gap metabolic acidosis secondary to above, resolved #Potential unwitnessed fall -Discussed management with neurology, MRI brain with and without contrast pending, continue Keppra 500 twice daily -Following seizure precautions -EEG is abnormal with concerns for cerebral dysfunction, brain MRI in the afternoon #Leukocytosis, reactive, resolved #Hyponatremia, mild,, resolved #Elevated T. Bilirubin Gallbladder ultrasound is unremarkable Continue monitor BMP and CBC Chronic conditions: None F: P.o. E: Replete as needed N: Regular diet A: Ambulatory without assist DVT ppx: Not indicated, low risk for DVT Code Status: Full code Anticipated discharge place: Pending clinical course Anticipated discharge date: Pending clinical course I have seen and evaluated the patient today. Discussed with the resident and agree with the residents finding and plan as documented in the resident's note. Changes highlighted in blue font. Objective - Vital Signs Vital signs: Vital Signs Temp 97.9 F 07/21/24 08:00 Pulse 59 L 07/21/24 08:00 Resp 16 07/21/24 08:00 BP 107/66 07/21/24 08:00 Pulse Ox 98 07/21/24 08:00 FiO2 Intake & Output 07/20/24 07/21/24 07/21/24 18:59 06:59 18:59 Intake Total 900 Balance 900 Intake: Intake, IV Titration 900 Amount Sodium Chloride 0.9% 1, 900 000 ml @ 75 mls/hr IV . [id number] [facility] Rx#:[id number] Other: Voiding Method Toilet Toilet Toilet # Voids 4 1 - Labs CBC & Chem 7: 07/20/24 06:11 07/20/24 06:11
--- NOTE | 2024-07-21 19:41 | MR ---
EXAMINATION TYPE: MR brain wo/w con DATE OF EXAM: 07/21/2024 3:53 PM COMPARISON: None. CLINICAL INDICATION: Female, 19 years old with history of seizure, Seizure TECHNIQUE: Multiplanar, multiecho imaging on a 3.0 Zo magnet is performed through the brain. Stud y is performed within 24 hours of arrival to the hospital.Multiplanar, multiecho imaging on a 3.0 Jodi la magnet is performed through the knee. IV Contrast: 4.5 mL Gadobutrol (None, if empty) FINDINGS: The craniovertebral junction is normal. The pituitary is normal. Diffusion-weighted imaging is performed. No abnormal hyperintensity is present to suggest an acute i ntracranial infarct or acute ischemic change. There are scattered punctate areas of hyperintensity on T2 and Inversion Recovery weighted sequences which are non-specific but can be related to microvascular ischemic changes. Ventricles and sulci are appropriate for the patient age. No abnormal enhancement is evident. Temporal lobes appear symmetrical with normal signal. IMPRESSION: 1. No suspicious abnormality to account for seizure. 2. Signal through the brain is unremarkable pre and postcontrast [facility] Betty Grover, , 07/21/2024 7:38 PM
[2024-07-22 07:47] VITALS: BP 117/76; PULSE 69; RESP 17; TEMP 97.8
--- NOTE | 2024-07-22 08:26 | P.PN ---
Subjective Progress Note Date: 07/21/24 Patient initially seen by Dr. Jb Henley. Please refer to his note for details. Patient is a 19-year-old female with seizure-like activity. This is the third episode in but was told due to electrolyte. But this time no electrolyte imbalance. EEG reviewed with Dr. Henley revealed discharges left temporal. Patient is on Keppra. Patient's father was also present by the bedside. They mentioned that patient had about 3 seizures in the last few months. The first 1 was in end of April or beginning of May 2024. This fourth event happened 2 times in 1 day. She gets an aura consisting of dj vu and then she sits down and she drinks water or electrolytes, it subsides. Sometimes she lays down and sleep. She had a bruise over the left frontal region and the left elbow and did not know how it happened. Prior to this admission, she woke up and saw those bruises, head rule, on her hair. She did not know what happened. Patient is tolerating Keppra, but is noticing some bloating feeling. Also had 1 episode of some irritability. Objective - Vital Signs Vital signs: Vital Signs Temp 98.5 F 07/21/24 19:11 Pulse 65 07/21/24 19:11 Resp 16 07/21/24 19:11 BP 116/68 07/21/24 19:11 Pulse Ox 99 07/21/24 19:11 FiO2 Intake & Output 07/21/24 07/21/24 07/22/24 06:59 18:59 06:59 Intake Total 580 Balance 580 Intake: Oral 580 Other: Voiding Method Toilet Toilet # Voids 1 2 - Exam Mental status, speech and language functions are normal. Cranial nerves are normal. Patient moves all 4 extremities normally. - Labs CBC & Chem 7: 07/20/24 06:11 07/20/24 06:11 Assessment and Plan Assessment: This is a 19-year-old young woman who presented emergency department on 07/18/2024 because of seizure-like activity and the parent stated that she was having jerking of all extremity, eyes rolling back and episode lasted more more than 3 minutes. She had 2 prior seizure-like activity and her first episode started about 4-5 months ago and in past at outside facility was told due to electrolyte abnormality (low sodium). New onset seizure, and Dr. Henley has felt more epileptic. This current event does not seems provoked from electrolyte disturbance. Leukocytosis and elevated lactic acid and this is more reactive due to above Plan: * Continue Keppra 500 mg twice a day started during this admission. She has noticed some abdominal bloating, which I do not believe is from Keppra. She did have 1 episode of some irritability but not very major. Patient will be continued on Keppra for now. If she continues to have any issues, then she can be changed to another agent like Vimpat or Lamictal. This can be accomplished as an outpatient. * MRI of the brain revealed no suspicious abnormality to account for seizure. Signal throughout the brain is unremarkable pre and postcontrast. I personally reviewed MRI agree with the findings. * EEG performed 07/20/[address] Henley was abnormal. There is temporal slowing of bilateral, but appears left more than right with suggestive of cerebral dysfunction in the involved region. There is rare epileptiform discharges over the left temporal and appears over the T3 lead, which can increase risk for focal seizures as well as status epilepticus. (This is the draft report by Dr. Jb Henley). * Notified the patient and her family per the [place] DMV because a seizure, to avoid driving for 6 months until seizure-free, avoid heights, avoid swimming assisted or heavy machinery * Will defer the rest of the medical management to primary and other specialist. * Patient has an appointment with neurologist on 07/24/2024. Patient is clear for discharge from neurology standpoint.
--- NOTE | 2024-07-22 10:20 | P.DS ---
Providers Date of admission: 07/18/24 20:37 Expected date of discharge: 07/22/24 Attending physician: Ildefonso Baez MD Consults: 07/18/24 20:37 Consult Physician Routine Consulting Provider: Jb Henley Consult Reason/Comments: seizure Do you want consulting provider notified?: Yes Primary care physician: [facility] Course: Discharge Diagnosis: #epilepsy #Elevated lactate, resolved #Anion gap metabolic acidosis secondary to above, resolved #Potential unwitnessed fall #Leukocytosis, reactive, resolved #Hyponatremia, mild, resolved #Elevated T. Bilirubin, resolved Hospital Course: 19-year-old female with a recent history of unwitnessed unprovoked seizures not on antiseizure medication presented after having witnessed tonic-clonic seizure. Patient admitted to the hospital for further assessment and treatment with concern for epilepsy. Initial lab work in the ER showed WBC 13.3, hemoglobin 14, MCV 90.5, neutrophil count 0.2, sodium 134, potassium 3.8, creatinine 0.55, glucose 154, lactic acid 8, magnesium 2.4, total bili 2.2, bHCG < 2.4, abdominal x-ray shows nonspecific bowel gas pattern without radiographic evidence of acute process. Head/cervical spine CT shows no acute radiographic processes, no evidence of cervical spine fracture. EKG unremarkable. Patient on Keppra 500 twice daily with seizure precautions. Neurology consulted. Abnormal EEG suggestive of cerebral dysfunction with rare epileptiform discharges over the left zoroastrianism and appears over the T3 lead concerning for increased risk of focal seizures as well as status. Brain MRI shows no abnormality noted to account for seizure and the signal through the brain is unremarkable pre and postcontrast. Patient is hemodynamically stable and doing the course of her admission no seizure activity was noted. Patient to be discharged home on Keppra 500 mg twice daily. Patient is advised to follow-up with PCP and neurology. Patient is advised that as per [place] law, no driving or use of heavy machinery for the next 6 months. Patient is advised to continue her regular home medications as directed. Patient is provided with instructions on epilepsy upon discharge. Vital signs reviewed. Gen: in no apparent distress, resting comfortably in bed Eyes: PERRL, no scleral injection or icterus HENT: normocephalic, atraumatic, good hearing acuity, moist mucous membranes Neck: full range of motion Resp: CTAB, no rales, rhonchi, or wheezes CVS: normal S1 and S2, no murmurs, rubs or gallops, no edema GI: soft, NTTP, ND, no hepatosplenomegaly : no suprapubic tenderness, no CVAT, umanzor catheter is not present MSK: no clubbing, no cyanosis, no noted contractures of extremities Skin: no noted rashes, petechiae; temperature of skin is appropriate Neuro: moving all extremities without signs of weakness, CN II-XII intact Psych: cooperative, euthymic mood, insight and judgment intact A total of 33 minutes of time were spent preparing this complex discharge summary. Patient was discharged on 07/22/2024 at 840. I have seen and evaluated the patient today. Discussed with the resident and agree with the residents finding and plan as documented in the resident's note. Changes highlighted in blue font. Patient Condition at Discharge: Stable Plan - Discharge Summary Discharge Rx Participant: No New Discharge Prescriptions: New levETIRAcetam [Keppra] 500 mg PO Q12HR #180 tab Continue Cholecalciferol (Vitamin D3) [Vitamin D3 (1250 Mcg = 50,000 Iu)] 1,250 mcg PO WE Discharge Medication List Cholecalciferol (Vitamin D3) [Vitamin D3 (1250 Mcg = 50,000 Iu)] 1,250 mcg PO WE 07/18/24 [History] levETIRAcetam [Keppra] 500 mg PO Q12HR #180 tab 07/22/24 [Rx] Follow up Appointment(s)/Referral(s): Minerva Braga NPC [Nurse Practitioner] - 07/30/24 9:00 am Patient Instructions/Handouts: Levetiracetam (By mouth), Epilepsy (DC) Activity/Diet/Wound Care/Special Instructions: Per [place] law, no driving or use of heavy machinery for the next 6 months. Follow-up with PCP and neurology. Discharge Disposition: HOME SELF-CARE
[2024-07-22 10:31] VITALS: BMI 18.0
[2024-07-23] MEDS ORDERED: CHOLECALCIFEROL 125 MCG (5000 IU) TABLET PO SCH (09:00)
== END 2024-07-22 11:35 | disposition home or self-care (01) | DRG 53 ==
LOC: EC 17:45 → 5NMEDONC 20:37
PROVIDERS: ADMIT Internal Medicine; ATTEND Internal Medicine
PROC: 4A10X4Z Monitoring of Central Nervous Electrical Activity, External Approach (ICD-10-PCS; principal; 2024-07-20)
DX: G40.909 Epilepsy, unspecified, not intractable, without status epilepticus (principal); E87.20 Acidosis, unspecified; D72.829 Elevated white blood cell count, unspecified; E87.1 Hypo-osmolality and hyponatremia; S00.83XA Contusion of other part of head, initial encounter; F17.290 Nicotine dependence, other tobacco product, uncomplicated; G90.A Postural orthostatic tachycardia syndrome [POTS]; R09.02 Hypoxemia; W19.XXXA Unspecified fall, initial encounter; Z79.899 Other long term (current) drug therapy; Z83.3 Family history of diabetes mellitus
CPT/HCPCS: 36415; 70450; 70553; 72125; 74018; 76705; 80048; 80053; 83605; 83735; 84702; 85025; 85027; 85610; 85730; 93005; 95816; 96361; 96374; 96375; 99285